=== PATIENT | male | born 2000 | race Caucasian/White ===

== ENCOUNTER 2021-06-11 08:50 | Emergency (ER) | payer OTHER ==
[2021-06-11 09:01] VITALS: BP 145/91; PULSE 114; RESP 20; TEMP 100.1
[2021-06-11] MEDS ORDERED: LIDOCAINE 1% INJ 10MG/ML (20 ML MDV) SQ ONE (10:31)
[2021-06-11] MEDS ORDERED: IBUPROFEN 600 MG TAB PO STA (10:31)
--- NOTE | 2021-06-11 11:41 | ED ---
Skin/Abscess/FB HPI - General Chief complaint: Skin/Abscess/Foreign Body Stated complaint: Rt Buttock Pain,Bleeding Time Seen by Provider: 06/11/21 10:16 Source: patient, RN notes reviewed Mode of arrival: ambulatory Limitations: no limitations - History of Present Illness Initial comments: Patient is a 20-year-old male that presents to the emergency department complaining of a right buttock abscess. He notes he has been going on for past week. He notes that this morning woke up and felt like it was draining. He notes that he can emergency room to get taken care of. He was otherwise well- appearing. He denied any ALLERGIES to medications. Patient denied any chest pain shortness breath headache nausea vomiting diarrhea constipation fever fat igue chills. - Related Data Previous Rx's Medication Instructions Recorded Cephalexin [Keflex] 500 mg PO Q6HR #40 cap 06/11/21 Sulfamethox-Tmp 800-160Mg [Bactrim 1 each PO Q12HR #20 tab 06/11/21 Ds] Allergies Allergy/AdvReac Type Severity Reaction Status Date / Time No Known Allergies Allergy Verified 06/11/21 09:01 Review of Systems ROS Statement: Those systems with pertinent positive or pertinent negative responses have been documented in the HPI. ROS Other: All systems not noted in ROS Statement are negative. Past Medical History Past Medical History: No Reported History History of Any Multi-Drug Resistant Organisms: None Reported Past Surgical History: No Surgical Hx Reported Smoking Status: Never smoker Past Alcohol Use History: None Reported Past Drug Use History: Marijuana General Exam Limitations: no limitations General appearance: alert, in no apparent distress Head exam: Present: atraumatic, normocephalic, normal inspection Eye exam: Present: normal appearance, PERRL, EOMI. Absent: scleral icterus, conjunctival injection, periorbital swelling ENT exam: Present: normal exam, mucous membranes moist Neck exam: Present: normal inspection Respiratory exam: Present: normal lung sounds bilaterally. Absent: respiratory distress, wheezes, rales, rhonchi, stridor Cardiovascular Exam: Present: regular rate, normal rhythm, normal heart sounds. Absent: systolic murmur, diastolic murmur, rubs, gallop, clicks Extremities exam: Present: normal inspection, full ROM, normal capillary refill. Absent: tenderness, pedal edema, joint swelling, calf tenderness Neurological exam: Present: alert, oriented X3 Psychiatric exam: Present: normal affect, normal mood Skin exam: Present: warm, dry, intact, normal color. Absent: rash Expanded Type of lesion: Present: abscess (Right buttock measuring approximately 5 cm x 5 cm artery draining purulent fluid.) Course Vital Signs 06/11/21 08:57 Temperature 100.1 F H Pulse Rate 114 H Respiratory 20 Rate Blood Pressure 145/91 O2 Sat by Pulse 97 Oximetry Procedures - Incision & Drainage Consent Obtained: verbal consent Site: buttock (Right) Size (cm): 6 Anesthetic Used: lidocaine 1% Amount (mLs): 12 I&D Cleaning Method: Alcohol Wipe Sterile Field Used?: Yes Scalpel Used: #11 Needle Aspiration Performed?: No Irrigation Performed?: Yes I&D Drainage Obtained: Pus, Blood Packing: Iodoform Culture Obtained?: Yes Patient Tolerated Procedure: well, no complications Medical Decision Making - Medical Decision Making 20-year-old male complaining of a right buttock abscess. Lidocaine aerobic wound culture and 600 mg of Motrin ordered. Patient tolerated incision and drainage well. antiBiotics sent to pharmacy. Case discussed with Dr. Zepeda. Disposition Clinical Impression: Abscess Disposition: HOME SELF-CARE Condition: Stable Instructions (If sedation given, give patient instructions): Abscess (ED), Abscess Incision and Drainage (ED) Additional Instructions: Please return to the Emergency Department if symptoms worsen or any other concerns. Follow-up with primary care 1-2 days. Take antibiotics until complete. Take Motrin as needed for fever. Follow-up with primary care to have packing removed. Prescriptions: Sulfamethox-Tmp 800-160Mg [Bactrim Ds] 1 each PO Q12HR #20 tab Cephalexin [Keflex] 500 mg PO Q6HR #40 cap Is patient prescribed a controlled substance at d/c from ED?: No Referrals: None,Stated [Primary Care Provider] - 1-2 days Time of Disposition: 11:41
== END 2021-06-11 12:11 | disposition home or self-care (01) ==
LOC: EC 08:50
DX: L02.31 Cutaneous abscess of buttock (principal); F12.90 Cannabis use, unspecified, uncomplicated
CPT/HCPCS: 99283; 10060; 87070; 87205; 87077; 87186; J2001

== ENCOUNTER 2021-08-25 07:06 | Emergency (ER) | payer OTHER ==
[2021-08-25 07:12] VITALS: BP 141/88; PULSE 104; RESP 18; TEMP 97.8
[2021-08-25] MEDS ORDERED: LIDOCAINE 1% INJ 10MG/ML (20 ML MDV) SQ ONE (07:26)
--- NOTE | 2021-08-25 07:48 | ED ---
Skin/Abscess/FB HPI - General Chief complaint: Skin/Abscess/Foreign Body Stated complaint: Cyst on Bottom Time Seen by Provider: 08/25/21 07:15 Source: patient Mode of arrival: ambulatory Limitations: no limitations - History of Present Illness Initial comments: 20-year-old male presents to the emergency department requesting drainage of a right buttock abscess. Patient was seen in our emergency department in June. He states that he had a buttock abscess drained and he had improvement in the size of the abscess. He was on antibiotics for which he states he finished them all. As of the past 3 days the patient has had increasing size to the same abscess with surrounding redness. Reports that it was draining purulent drainage and blood yesterday. States that the pain is not as severe as his June visit. Denies any changes in his bowel or bladder functions. No anal pain. No fevers. 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 ROS Other: All systems not noted in ROS Statement are negative. Past Medical History Past Medical History: No Reported History History of Any Multi-Drug Resistant Organisms: None Reported Past Surgical History: No Surgical Hx Reported Past Psychological History: Depression, Schizophrenia Smoking Status: Never smoker Past Alcohol Use History: Occasional, Rare Past Drug Use History: Marijuana General Exam Limitations: no limitations General appearance: alert, in no apparent distress Head exam: Present: atraumatic, normocephalic, normal inspection Eye exam: Present: normal appearance, PERRL, EOMI. Absent: scleral icterus, conjunctival injection, periorbital swelling ENT exam: Present: normal exam, mucous membranes moist Neck exam: Present: normal inspection. Absent: tenderness, meningismus, lymphadenopathy Respiratory exam: Present: normal lung sounds bilaterally. Absent: respiratory distress, wheezes, rales, rhonchi, stridor Cardiovascular Exam: Present: regular rate, normal rhythm, normal heart sounds. Absent: systolic murmur, diastolic murmur, rubs, gallop, clicks GI/Abdominal exam: Present: soft, normal bowel sounds. Absent: distended, tenderness, guarding, rebound, rigid Rectal exam: Present: normal inspection, normal rectal tone, other (area of induration right buttock measuring 5 x 4 cm. central scab. No fluctuance. Does not extend toward anus. mild active drainage. overlying redness) Extremities exam: Present: normal inspection, full ROM, normal capillary refill. Absent: tenderness, pedal edema, joint swelling, calf tenderness Back exam: Present: normal inspection Neurological exam: Present: alert, oriented X3, CN II-XII intact Psychiatric exam: Present: normal affect, normal mood Skin exam: Present: warm, dry, intact, normal color. Absent: rash Course Vital Signs 08/25/21 07:09 Temperature 97.8 F Pulse Rate 104 H Respiratory 18 Rate Blood Pressure 141/88 O2 Sat by Pulse 98 Oximetry Procedures - Incision & Drainage Consent Obtained: verbal consent Site: buttock Size (cm): 5 Anesthetic Used: lidocaine 1% Amount (mLs): 8 I&D Cleaning Method: Chloroprep Sterile Field Used?: Yes Scalpel Used: #11 Needle Aspiration Performed?: No I&D Drainage Obtained: Other (none) Culture Obtained?: No Patient Tolerated Procedure: well, no complications Medical Decision Making - Medical Decision Making Upon arrival patient is placed into room 10. A thorough history and physical exam was performed. Patient does have induration of the right buttock with a central scab that is partially draining. I did perform incision and drainage however only receive return of bright red blood. No purulence. Patient will be placed on Bactrim and Keflex for the next 7 days. Instructed to follow up with surgery for definitive treatment of his buttock wound. Return for any new or worsening symptoms. Patient agreed to this plan and was discharged home in stable condition Disposition Clinical Impression: Abscess of buttock, right Disposition: HOME SELF-CARE Condition: Stable Instructions (If sedation given, give patient instructions): Abscess Incision and Drainage (ED), Abscess (ED) Additional Instructions: Take the antibiotics as directed and follow-up with the surgeon for further definitive treatment. Return for any worsening symptoms Prescriptions: Sulfamethox-Tmp 800-160Mg [Bactrim Ds] 2 each PO Q12HR #28 tab Cephalexin [Keflex] 500 mg PO Q6HR #28 cap Is patient prescribed a controlled substance at d/c from ED?: No Referrals: None,Stated [Primary Care Provider] - 1-2 days Gina Vergara MD [STAFF PHYSICIAN] - 1-2 days Time of Disposition: 07:52
== END 2021-08-25 08:07 | disposition home or self-care (01) ==
LOC: EC 07:06
DX: L02.31 Cutaneous abscess of buttock (principal); F12.90 Cannabis use, unspecified, uncomplicated
CPT/HCPCS: 10060; 99283; J2001